=== PATIENT | male | born 1935 | race Caucasian/White ===

== ENCOUNTER 2016-08-20 12:22 | Emergency (ER) | payer MEDICARE, OTHER ==
[~2016-08-20] VITALS: Ht 175.3 cm; Wt 62.5 kg
[~2016-08-20 12:22] MED LIST: ASPI-556 PO; CARV25 PO; HYDR25TA PO; SIMV20 PO
[2016-08-20] MEDS ORDERED: DONE5TAB PO (12:46)
[2016-08-20] MEDS ORDERED: AMLO-511 PO (12:46)
[2016-08-20] MEDS ORDERED: LISI1TAB9 PO (12:46)
[2016-08-20 15:49] VITALS: BP 158/67
== END 2016-08-20 15:50 | disposition home or self-care (01) ==
LOC: EMS 12:25
DX: S63.615A Unspecified sprain of left ring finger, initial encounter (principal); I10 Essential (primary) hypertension; E78.00 Pure hypercholesterolemia, unspecified; F17.210 Nicotine dependence, cigarettes, uncomplicated; W18.39XA Other fall on same level, initial encounter; Y93.89 Activity, other specified; Y92.89 Other specified places as the place of occurrence of the external cause; Y99.8 Other external cause status
CPT/HCPCS: 99284